=== PATIENT | female | born 2000 | race Caucasian/White ===

== ENCOUNTER → 2020-06-25 | Outpatient (CLI) | payer OTHER | LOC: EXRD 13:30 | DX: E04.2 Nontoxic multinodular goiter (principal) | CPT/HCPCS: 76536 ==

== ENCOUNTER 2021-03-06 16:18 | Inpatient (IN) | payer OTHER ==
[~2021-03-06] VITALS: Ht 157.5 cm; Wt 69.9 kg
[2021-03-06 17:16] LABS: RED BLOOD COUNT 3.85 M/UL (4.00-5.10); WHITE BLOOD COUNT 13.5 K/UL (4.5-11.0)
[2021-03-06] MEDS ORDERED: KEPPRA 250 MG250 MG PO (18:35)
[2021-03-07] MEDS ORDERED: HYDROCODON-ACE1 EAC4 PO (23:30)
[2021-03-07] MEDS ORDERED: DOCUSATE SODIU100 MG PO (23:30)
[2021-03-07] MEDS ORDERED: IBUPROFEN600 MG PO (23:30)
[2021-03-08 07:24] LABS: HEMOGLOBIN 9.7 gm/dl (12.3-15.3)
== END 2021-03-09 13:14 | disposition home or self-care (01) | DRG 788 ==
LOC: GENOP 16:18 → CDU 16:30 → OB 17:02
PROVIDERS: Obstetrics & Gynecology; ADMIT Obstetrics & Gynecology
PROC: 3E033VJ Introduction of Other Hormone into Peripheral Vein, Percutaneous Approach (ICD-10-PCS; 2021-03-07)
PROC: 10907ZC Drainage of Amniotic Fluid, Therapeutic from Products of Conception, Via Natural or Artificial Opening (ICD-10-PCS; 2021-03-07)
PROC: 10D00Z1 Extraction of Products of Conception, Low, Open Approach (ICD-10-PCS; principal; 2021-03-08)
DX: O24.420 Gestational diabetes mellitus in childbirth, diet controlled (principal); O62.1 Secondary uterine inertia; Z3A.38 38 weeks gestation of pregnancy; Z37.0 Single live birth; Z88.1 Allergy status to other antibiotic agents; O99.02 Anemia complicating childbirth; D64.9 Anemia, unspecified; Z20.822 Contact with and (suspected) exposure to COVID-19; O76 Abnormality in fetal heart rate and rhythm complicating labor and delivery
CPT/HCPCS: 36415; 81001; 82800; 82962; 85014; 85018; 85025; C9113; J1170; J2370; J2590; J3370; J7030; J7070; U0002